=== PATIENT | male | born 1965 | race American Indian/Alaskan Native ===

== ENCOUNTER 2016-07-04 02:05 | Emergency (ER) | payer MEDICARE ==
[2016-07-04 04:27] LABS: Anion Gap 17 mmol/L; BUN/Creatinine Ratio 14.44; Blood Urea Nitrogen 13 mg/dL (9-20); Calcium 9.1 mg/dL (8.4-10.2); Carbon Dioxide 25 mmol/L (22-30); Glucose 111 mg/dL (75-100); Potassium 3.8 mmol/L (3.6-5.0); Sodium 140 mmol/L (137-145)
[2016-07-04 04:45] LABS: Basophils % (Auto) 1.2 % (0.0-1.8); Eosinophils % (Auto) 0.8 % (0.0-4.3); Hematocrit 43.9 % (35.5-45.6); Hemoglobin 14.2 gm/dl (11.8-15.2); Mean Corpuscular HGB Conc 32 % (32-34); Mean Corpuscular Hemoglobin 27 pg (28-32); Mean Corpuscular Volume 84 fl (84-94); Platelet Count 323 K/mm3 (140-440); Red Blood Count 5.22 M/mm3 (3.65-5.03); Red Cell Distribution Width 14.9 % (13.2-15.2); White Blood Count 8.9 K/mm3 (4.5-11.0)
--- NOTE | 2016-07-04 11:24 | Emergency Department Report ---
HPI - General Chief Complaint: Chest Pain Time Seen by Provider: 07/04/16 11:09 - HPI HPI: Chief complaint: Elevated blood pressure HPI: Patient is a 51-year-old male with history of hypertension and some sort of tachyarrhythmia who states his blood pressure was 160 systolic at 1:00 this morning so he came into the emergency department. Patient states he was seen at another hospital with a tachycardia arrhythmia and had atenolol added to his Norvasc and lisinopril. Patient is a very poor historian was unable to say what types of testing he had. Patient states he had 1 minute of chest pain substernal 1:00 in the morning and one on Tuesday. Patient is currently not having any chest pain, shortness of breath, nausea or vomiting. Mode of arrival: [EMS] Source: [Patient] and nursing notes Began: 1:00 in the morning Duration: Unclear patient did not have hypertension on arrival Context: See above Quality: Dull Severity: Currently 0 out of 10 Improved with: Nothing Worsened with: Nothing Associated signs and symptoms: Denies shortness of breath, diaphoresis, pedal edema ED Past Medical Hx - Past Medical History Previous Medical History?: Yes Hx Hypertension: Yes Hx Psychiatric Treatment: Yes (anxiety) - Social History Smoking Status: Unknown if ever smoked ED Review of Systems ROS: Stated complaint: HIGH BLOOD PRESSURE Other details as noted in HPI ROS Constitutional: No fever ENT: No uri symptoms Cardiovascular: See HPI Respiratory: No sob or cough GI: No nausea vomiting or diarrhea : No dysuria frequency or urgency, Skin: No rash Neuro: No focal weakness or numbness Psych: No depression Rashard/lymph: No edema Physical Exam - Physical Exam Vital Signs: Vital Signs 07/04/16 07/04/16 07/04/16 03:40 09:11 10:50 Temperature 98.0 F 98.1 F Pulse Rate 73 70 Respiratory 18 16 16 Rate Blood Pressure 135/92 Blood Pressure 144/88 [Left] O2 Sat by Pulse 99 99 99 Oximetry Physical Exam: GENERAL: The patient is well-developed well-nourished . HEENT: Normocephalic. Atraumatic. Patient has moist mucous membranes. NECK: Supple. No meningitic signs are noted. There is no adenopathy noted. CHEST/LUNGS: Clear to auscultation. There is no respiratory distress noted. HEART/CARDIOVASCULAR: Regular. There is no tachycardia. There is no gallop rub or murmur. ABDOMEN: Abdomen is soft, nontender. Patient has normal bowel sounds. There is no abdominal distention. SKIN: There is no rash. There is no edema. There is no diaphoresis. NEURO: The patient is awake, alert, and oriented. The patient is cooperative. The patient has no focal neurologic deficits. The patient has normal speech. MUSCULOSKELETAL: There is no tenderness or deformity. There is no limitation range of motion. There is no evidence of acute injury. ED Course Vital Signs 07/04/16 07/04/16 07/04/16 03:40 09:11 10:50 Temperature 98.0 F 98.1 F Pulse Rate 73 70 Respiratory 18 16 16 Rate Blood Pressure 135/92 Blood Pressure 144/88 [Left] O2 Sat by Pulse 99 99 99 Oximetry ED Medical Decision Making - Lab Data Result diagrams: 07/04/16 03:57 07/04/16 03:57 Laboratory Tests 07/04/16 07/04/16 07/04/16 03:57 07:08 09:29 Calcium 9.1 Troponin T < 0.010 < 0.010 < 0.010 - EKG Data -: EKG Interpreted by Fl EKG shows normal: sinus rhythm Rate: bradycardia (56) - EKG Data When compared to previous EKG there are: previous EKG unavailable Interpretation: nonspecific ST-T wave suresh, LVH Critical care attestation.: If time is entered above; I have spent that time in minutes in the direct care of this critically ill patient, excluding procedure time. ED Disposition Clinical Impression: Essential hypertension Disposition: DISCHARGED TO HOME OR SELFCARE Is pt being admited?: No Does the pt Need Aspirin: No Condition: Stable Instructions: Hypertension (ED) Additional Instructions: Continue current medication. Recommend taking atenolol prior to going to bed. Referrals: SYED CONTI MD [Primary Care Provider] - 2-3 Days Time of Disposition: 11:25
[2016-07-04 11:38] VITALS: BP 136/87
[2016-07-04 11:38] LABS: Bilirubin,Urine NEG (Negative); Blood,Urine NEG (Negative); Ketones,Urine 80 mg/dL (Negative); Leukocyte Esterase,Urine NEG (Negative); Mucus,Urine 3+ /HPF; Nitrite,Urine NEG (Negative); Protein,Urine <15 mg/dL mg/dL (Negative); Urobilinogen,Urine < 2.0 mg/dL (<2.0)
== END 2016-07-04 11:38 | disposition home or self-care (01) ==
LOC: ED 02:05
DX: I10 Essential (primary) hypertension (principal); F41.9 Anxiety disorder, unspecified
CPT/HCPCS: 36415; 80048; 81001; 84484; 85025; 93005; 93010; 99285

== ENCOUNTER 2017-03-09 21:39 | Emergency (ER) | payer MEDICARE ==
[2017-03-10] MEDS ORDERED: ASPIRIN PO ONE (10:41)
[2017-03-10] MEDS ORDERED: NACL 0.9% 1000 ML 1,000 ML IV ONE (10:41)
[2017-03-10] MEDS ORDERED: ATIVAN IV NR (10:45)
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
[2017-03-10 11:09] LABS: Urine Drugs of Abuse Note Disclamer
[2017-03-10 11:21] LABS: Eosinophils % (Auto) 2.9 % (0.0-4.3); Hematocrit 44.6 % (35.5-45.6); Hemoglobin 14.3 gm/dl (11.8-15.2); Mean Corpuscular HGB Conc 32 % (32-34); Mean Corpuscular Hemoglobin 27 pg (28-32); Mean Corpuscular Volume 85 fl (84-94); Platelet Count 261 K/mm3 (140-440); Red Blood Count 5.26 M/mm3 (3.65-5.03); Red Cell Distribution Width 14.3 % (13.2-15.2); White Blood Count 6.1 K/mm3 (4.5-11.0)
[2017-03-10 11:28] LABS: Creatine Kinase MB 1.9 ng/mL (0.0-4.0)
[2017-03-10 11:29] LABS: Alanine Aminotransferase 21 units/L (7-56); Albumin 4.1 g/dL (3.9-5); Albumin/Globulin Ratio 1.3 %; Alkaline Phosphatase 68 units/L (35-129); Anion Gap 16 mmol/L; BUN/Creatinine Ratio 12; Blood Urea Nitrogen 11 mg/dL (9-20); Carbon Dioxide 29 mmol/L (22-30); Chloride 100.2 mmol/L (98-107); Glucose 97 mg/dL (75-100); Potassium 4.2 mmol/L (3.6-5.0); Sodium 141 mmol/L (137-145); Total Protein 7.3 g/dL (6.3-8.2)
[2017-03-10 11:30] LABS: Creatine Kinase 131 units/L (55-170)
[2017-03-10 11:34] LABS: Bilirubin,Urine NEG (Negative); Blood,Urine NEG (Negative); Ketones,Urine NEG (Negative); Leukocyte Esterase,Urine NEG (Negative); Mucus,Urine 3+ /HPF; Nitrite,Urine NEG (Negative); Protein,Urine <15 mg/dL mg/dL (Negative); Urobilinogen,Urine < 2.0 mg/dL (<2.0)
--- NOTE | 2017-03-10 11:44 | XRay Report ---
AP CHEST : 03/09/17 21:39:00 CLINICAL: Chest pain. COMPARISON:None FINDINGS: Normal heart and pulmonary vessels. The lungs are normally expanded and clear. Dextroscoliosis. IMPRESSION: No acute cardiopulmonary process.
[2017-03-10 15:37] LABS: Anion Gap 17 mmol/L; BUN/Creatinine Ratio 10; Blood Urea Nitrogen 10 mg/dL (9-20); Calcium 8.9 mg/dL (8.4-10.2); Carbon Dioxide 29 mmol/L (22-30); Chloride 101.5 mmol/L (98-107); Glucose 104 mg/dL (75-100); Potassium 4.1 mmol/L (3.6-5.0); Sodium 143 mmol/L (137-145)
[2017-03-11] MEDS ORDERED: NORVASC PO SCH (12:00)
[2017-03-11] MEDS ORDERED: SUBLIMAZE ONE (12:37)
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
[2017-03-11 16:47] VITALS: BP 146/95
== END 2017-03-11 16:47 | disposition home or self-care (01) ==
LOC: ED 21:39
DX: F41.9 Anxiety disorder, unspecified (principal); F32.9 Major depressive disorder, single episode, unspecified; R07.9 Chest pain, unspecified; I10 Essential (primary) hypertension
CPT/HCPCS: 36415; 80048; 80053; 80307; 81001; 82550; 82553; 84436; 84443; 84481; 84484; 85025; 85379; 96360; 99285; G0480; J3010; J7030; 71010; 80320

== ENCOUNTER 2017-03-17 06:31 | Emergency (ER) | payer MEDICARE ==
[2017-03-17 06:40] VITALS: BP 111/75
--- NOTE | 2017-03-17 07:47 | Emergency Department Report ---
ED Anxiety HPI - General Chief Complaint: Medical Clearance Stated Complaint: ANXIETY Time Seen by Provider: 03/17/17 07:32 Source: patient, EMS Mode of arrival: Ambulatory Limitations: No Limitations - History of Present Illness Initial Comments: Patient here reported that he had anxiety attack this morning and called the ambulance because he said he felt like his heart was going fast. Denies any chest pain or shortness of breath. He said he feels better now and just wants to know what his blood pressure is. Denies any chest pain. Denies any suicide or homicide ideation. Pain is 0-10. Patient does see a psychiatrist said [facility] and also he sees primary care doctor at [facility]. Patient is on Zoloft for depression Atarax for anxiety Prilosec for acid reflux. Patient said he gets anxiety attack from time to time and he is not quite sure what triggered this but says he was about to get into his truck and drive and he just started feeling anxious. History of anxiety, depression, high blood pressure and acid reflux MD Complaint: anxiety, heart racing -: This morning Symptoms: palpitations Place: home Previous History of Same: Yes Severity: moderate Quality: improving Provoking factors: work/job stress Improves With: rest Worsens With: thinking about event Associated symptoms: palpitations. denies: chest pain, shortness of breath, diaphoresis, denies other symptoms, cough, fever/chills, headaches, anorexia, malaise, nausea/vomiting, rash, seizure, syncope, weakness - Related Data Home Medications: Home Medications Medication Instructions Recorded Confirmed Last Taken Ondansetron [Zofran Odt] 4 mg PO Q8HR PRN 07/04/16 03/10/17 Unknown amLODIPine [Norvasc] 10 mg PO DAILY 07/04/16 03/10/17 Unknown Sertraline 50 mg PO HS 03/10/17 03/10/17 Unknown hydrOXYzine 25 mg PO TID 03/10/17 03/10/17 Unknown Previous Rx's Medication Instructions Recorded Last Taken Type hydrOXYzine HCL [Atarax] 25 mg PO Q6HR PRN #30 tablet 03/11/17 Unknown Rx Allergies/Adverse Reactions: Allergies Allergy/AdvReac Type Severity Reaction Status Date / Time No Known Allergies Allergy Verified 03/11/17 11:38 ED Review of Systems ROS: Stated complaint: ANXIETY Other details as noted in HPI Comment: All other systems reviewed and negative Constitutional: no symptoms reported ENT: denies: ear pain, throat pain, congestion Respiratory: no symptoms reported Cardiovascular: denies: chest pain, palpitations, dyspnea on exertion, edema, syncope, paroxysmal nocturnal dyspnea Gastrointestinal: denies: abdominal pain, nausea, vomiting, diarrhea, constipation, hematemesis Musculoskeletal: denies: back pain, joint swelling, arthralgia, myalgia Skin: denies: rash Neurological: denies: headache, weakness, numbness, paresthesias, confusion, abnormal gait, vertigo Psychiatric: anxiety ( via EMS with anxiety but says that is improved.). denies : auditory hallucinations, visual hallucinations, homicidal thoughts, suicidal thoughts ED Past Medical Hx - Past Medical History Previous Medical History?: Yes Hx Hypertension: Yes Hx Psychiatric Treatment: Yes (anxiety, depression) - Surgical History Past Surgical History?: No - Family History Family history: no significant - Social History Smoking Status: Never Smoker - Medications Home Medications: Home Medications Medication Instructions Recorded Confirmed Last Taken Type Ondansetron [Zofran Odt] 4 mg PO Q8HR PRN 07/04/16 03/10/17 Unknown History amLODIPine [Norvasc] 10 mg PO DAILY 07/04/16 03/10/17 Unknown History Sertraline 50 mg PO HS 03/10/17 03/10/17 Unknown History hydrOXYzine 25 mg PO TID 03/10/17 03/10/17 Unknown History hydrOXYzine HCL [Atarax] 25 mg PO Q6HR PRN #30 tablet 03/11/17 Unknown Rx ED Physical Exam - General Limitations: No Limitations General appearance: alert, in no apparent distress - Head Head exam: Present: atraumatic, normocephalic, normal inspection - Eye Eye exam: Present: normal appearance, PERRL, EOMI. Absent: conjunctival injection, periorbital swelling, periorbital tenderness Pupils: Present: normal accommodation - ENT ENT exam: Present: normal exam, normal orophraynx, mucous membranes moist, TM's normal bilaterally, normal external ear exam - Neck Neck exam: Present: normal inspection, full ROM, other (no C-spine tenderness). Absent: tenderness, meningismus, lymphadenopathy - Respiratory Respiratory exam: Present: normal lung sounds bilaterally. Absent: respiratory distress, wheezes, rales, rhonchi, stridor, chest wall tenderness, accessory muscle use, decreased breath sounds, prolonged expiratory - Cardiovascular Cardiovascular Exam: Present: regular rate, normal rhythm, normal heart sounds. Absent: systolic murmur, diastolic murmur - GI/Abdominal GI/Abdominal exam: Present: soft, normal bowel sounds. Absent: distended, tenderness, guarding, rebound, rigid, mass, bruit, pulsatile mass, hernia - Extremities Exam Extremities exam: Present: normal inspection, full ROM, normal capillary refill , other (no clubbing, cyanosis or edema. +2 pulses in all extremities. No neurovascular compromise). Absent: tenderness, pedal edema, joint swelling, calf tenderness - Back Exam Back exam: Present: normal inspection, full ROM, other (patient ambulates without any difficulties). Absent: tenderness, CVA tenderness (R), CVA tenderness (L), muscle spasm, paraspinal tenderness, vertebral tenderness, rash noted - Neurological Exam Neurological exam: Present: alert, oriented X3, normal gait, reflexes normal, other (no focal neurological deficit). Absent: motor sensory deficit - Psychiatric Psychiatric exam: Present: normal affect, normal mood. Absent: anxious, homicidal ideation, suicidal ideation - Skin Skin exam: Present: warm, dry, intact, normal color. Absent: rash ED Course Vital Signs 03/17/17 06:36 Temperature 98 F Pulse Rate 85 Respiratory 18 Rate Blood Pressure 111/75 O2 Sat by Pulse 97 Oximetry - Reevaluation(s) Reevaluation #1: 03/17/17 08:13 Patient stable throughout ED stay ED Medical Decision Making - Medical Decision Making ED course: She reports that he had a anxiety attack this morning similar to previous anxiety. He reports that he was on his way to work and he just got anxious. Patient says that he wants his blood pressure to be checked but he is feeling much better about his anxiety. He is on hydroxyzine. Blood pressure stable on Norvasc. Patient does have a psychiatrist and a primary care doctor for patient at [facility]. I discussed the patient is vital signs stable and patient is no longer anxious and he said he is ready to go back is feeling better. Patient discharged to follow up with his psychiatrist and primary care doctor. Critical care attestation.: If time is entered above; I have spent that time in minutes in the direct care of this critically ill patient, excluding procedure time. ED Disposition Clinical Impression: Anxiety about health Disposition: DC-01 TO HOME OR SELFCARE Is pt being admited?: No Does the pt Need Aspirin: No Condition: Stable Instructions: Anxiety (ED) Additional Instructions: Please follow-up with your psychiatrist tomorrow Please call your primary care physician scheduled appointment for follow-up visit Continue taking her medication as prescribed by your doctors. Increase your fluid intake. Referrals: PRIMARY CARE,MD [Primary Care Provider] - 24 Hours Your, psychiatrist [Other] - 24 Hours Forms: Accompanied Note, Work/School Release Form(ED)
== END 2017-03-17 08:23 | disposition home or self-care (01) ==
LOC: ED 06:31
DX: F41.9 Anxiety disorder, unspecified (principal); I10 Essential (primary) hypertension
CPT/HCPCS: 99282

== ENCOUNTER 2017-07-08 01:31 | Emergency (ER) | payer MEDICARE ==
[2017-07-08] MEDS ORDERED: ASPIRIN PO ONE (03:49)
[2017-07-08 04:18] LABS: Basophils # (Auto) 0.1 K/mm3 (0.0-0.1); Basophils % (Auto) 1.3 % (0.0-1.8); Eosinophils # (Auto) 0.2 K/mm3 (0.0-0.4); Eosinophils % (Auto) 2.2 % (0.0-4.3); Hematocrit 41.9 % (35.5-45.6); Hemoglobin 13.9 gm/dl (11.8-15.2); Lymphocytes # (Auto) 1.9 K/mm3 (1.2-5.4); Lymphocytes % (Auto) 26.6 % (13.4-35.0); Mean Corpuscular HGB Conc 33 % (32-34); Mean Corpuscular Hemoglobin 27 pg (28-32); Mean Corpuscular Volume 82 fl (84-94); Monocytes # (Auto) 0.5 K/mm3 (0.0-0.8); Monocytes % (Auto) 7.7 % (0.0-7.3); Platelet Count 297 K/mm3 (140-440); Red Blood Count 5.09 M/mm3 (3.65-5.03); Red Cell Distribution Width 14.7 % (13.2-15.2)
[2017-07-08 04:51] LABS: BUN/Creatinine Ratio 13; Blood Urea Nitrogen 12 mg/dL (9-20); Calcium 8.8 mg/dL (8.4-10.2); Hemolysis Index 13
--- NOTE | 2017-07-08 06:41 | Emergency Department Report ---
ED Chest Pain HPI - General Chief Complaint: Chest Pain Stated Complaint: ANXIETY Time Seen by Provider: 07/08/17 06:09 Source: patient Mode of arrival: Ambulatory Limitations: No Limitations - History of Present Illness Initial Comments: 52-year-old Samoan male presents to the emergency department from home with complaint of some midsternal chest burning and a sore throat that started about midnight last night. Patient has not taken anything for her symptoms from presentation. He has a past medical history of hypertension and anxiety for which she takes Norvasc, sertraline and hydroxyzine. The chest discomfort as a burning sensation and is nonradiating. He denies any back pain, nausea, vomiting, fever, shortness of breath or diaphoresis. He denies any tobacco or illicit drug use or abuse. No recent travel or sick contacts at home. He goes to [facility] for primary care. - Related Data Home Medications Medication Instructions Recorded Confirmed Last Taken Ondansetron [Zofran Odt] 4 mg PO Q8HR PRN 07/04/16 03/10/17 Unknown amLODIPine [Norvasc] 10 mg PO DAILY 07/04/16 03/10/17 Unknown Sertraline 50 mg PO HS 03/10/17 03/10/17 Unknown hydrOXYzine 25 mg PO TID 03/10/17 03/10/17 Unknown Previous Rx's Medication Instructions Recorded Last Taken Type hydrOXYzine HCL [Atarax] 25 mg PO Q6HR PRN #30 tablet 03/11/17 Unknown Rx Allergies Allergy/AdvReac Type Severity Reaction Status Date / Time ibuprofen AdvReac Unknown Verified 07/08/17 07:58 Penicillins AdvReac Unknown Verified 07/08/17 07:58 Heart Score - HEART Score History: Slightly suspicious EKG: Normal Age: 45-65 Risk factors: 1-2 risk factors Troponin: < normal limit HEART Score: 2 - Critical Actions Critical Actions: 0-3 pts:0.9-1.7%risk of adverse cardiac event.Candidate for discharge ED Review of Systems ROS: Stated complaint: ANXIETY Other details as noted in HPI Comment: All other systems reviewed and negative Constitutional: denies: chills, fever Eyes: denies: eye pain, eye discharge, vision change ENT: throat pain. denies: ear pain Respiratory: denies: cough, shortness of breath, wheezing Cardiovascular: chest pain. denies: palpitations Gastrointestinal: denies: abdominal pain, nausea, diarrhea Genitourinary: denies: urgency, dysuria Musculoskeletal: denies: back pain, joint swelling, arthralgia Skin: denies: rash, lesions Neurological: denies: headache, weakness, paresthesias ED Past Medical Hx - Past Medical History Previous Medical History?: Yes Hx Hypertension: Yes Hx Psychiatric Treatment: Yes (anxiety, depression) - Surgical History Past Surgical History?: No - Social History Smoking Status: Never Smoker Substance Use Type: None - Medications Home Medications: Home Medications Medication Instructions Recorded Confirmed Last Taken Type Ondansetron [Zofran Odt] 4 mg PO Q8HR PRN 07/04/16 03/10/17 Unknown History amLODIPine [Norvasc] 10 mg PO DAILY 07/04/16 03/10/17 Unknown History Sertraline 50 mg PO HS 03/10/17 03/10/17 Unknown History hydrOXYzine 25 mg PO TID 03/10/17 03/10/17 Unknown History hydrOXYzine HCL [Atarax] 25 mg PO Q6HR PRN #30 tablet 03/11/17 Unknown Rx ED Physical Exam - General Limitations: No Limitations ED Course Vital Signs 07/08/17 07/08/17 07/08/17 03:41 07:00 07:40 Temperature 97.9 F 97.9 F Pulse Rate 63 58 L Respiratory 28 H 18 16 Rate Blood Pressure 116/76 Blood Pressure 122/78 [Left] O2 Sat by Pulse 96 96 100 Oximetry NOA score - Noa Score Age > 65: (0) No Aspirin use within the Past 7 Days: (0) No 3 or more CAD Risk Factors: (0) No 2 or more Angina events in past 24 hrs: (0) No Known CAD with more than 50% Stenosis: (0) No Elevated Cardiac Markers: (0) No ST Deviation Greater than 0.5mm: (0) No NOA Score: 0 ED Medical Decision Making - Lab Data Result diagrams: 07/08/17 04:07 07/08/17 04:07 - EKG Data -: EKG Interpreted by Me EKG shows normal: sinus rhythm, axis, intervals, QRS complexes, ST-T waves ( early repolarization) Rate: normal - EKG Data When compared to previous EKG there are: previous EKG unavailable Interpretation: normal EKG Critical care attestation.: If time is entered above; I have spent that time in minutes in the direct care of this critically ill patient, excluding procedure time. ED Disposition Clinical Impression: History of anxiety Chest pain Qualifiers: Chest pain type: unspecified Qualified Code(s): R07.9 - Chest pain, unspecified Pharyngitis Qualifiers: Pharyngitis/tonsillitis etiology: unspecified etiology Qualified Code(s): J02.9 - Acute pharyngitis, unspecified Disposition: TO HOME OR SELFCARE Is pt being admited?: No Condition: Stable Instructions: Chest Pain (ED), Pharyngitis (ED) Additional Instructions: Please follow-up with your primary care physician in the next few days without fail. Return to the emergency department with any return of your chest pain, development of shortness of breath, worsening of your symptoms, or with any acute distress. I have given him a referral for a local power house engineer, Dr. Tapia, to follow up regarding your previous chest pain for further outpatient evaluation. Referrals: CHARITY TAPIA MD [Staff Physician] - 3-5 Days PCP, Your [Other] - RUDDY Time of Disposition: 08:10
--- NOTE | 2017-07-08 06:52 | XRay Report ---
FINAL REPORT EXAM: XR CHEST ROUTINE 2V HISTORY: CP TECHNIQUE: PA and lateral chest radiographs PRIORS: None. FINDINGS: No mediastinal shift. Cardiac silhouette is not enlarged. No pneumothorax, effusion, or focal pulmonary opacity. No acute skeletal finding. IMPRESSION: No focal pulmonary opacity.
[2017-07-08] MEDS ORDERED: ASPIRIN ONE (07:36)
[2017-07-08 08:03] VITALS: BP 122/78
== END 2017-07-08 08:35 | disposition home or self-care (01) ==
LOC: ED 01:31
DX: J02.9 Acute pharyngitis, unspecified (principal); R07.89 Other chest pain; F41.9 Anxiety disorder, unspecified; I10 Essential (primary) hypertension; F32.9 Major depressive disorder, single episode, unspecified; Z88.0 Allergy status to penicillin
CPT/HCPCS: 36415; 71046; 80048; 84484; 85025; 87116; 87400; 87430; 93005; 93010

== ENCOUNTER 2017-07-15 01:46 | Emergency (ER) | payer MEDICARE ==
[2017-07-15] MEDS ORDERED: ASPIRIN PO ONE (02:50)
[2017-07-15] MEDS ORDERED: ALUM-MAG HYDROX-SIMETH 200-200-20MG/5ML PO ONE (03:18)
[2017-07-15] MEDS ORDERED: PEPCID PO ONE (03:18)
[2017-07-15] MEDS ORDERED: ULTRAM PO ONE (03:18)
[2017-07-15 03:51] LABS: Basophils % (Auto) 0.2 % (0.0-1.8); Hematocrit 42.8 % (35.5-45.6); Hemoglobin 14.2 gm/dl (11.8-15.2); Lymphocytes % (Auto) 15.9 % (13.4-35.0); Mean Corpuscular HGB Conc 33 % (32-34); Mean Corpuscular Hemoglobin 27 pg (28-32); Mean Corpuscular Volume 82 fl (84-94); Monocytes # (Auto) 0.1 K/mm3 (0.0-0.8); Monocytes % (Auto) 1.1 % (0.0-7.3); Platelet Count 303 K/mm3 (140-440); Red Blood Count 5.23 M/mm3 (3.65-5.03); Red Cell Distribution Width 14.5 % (13.2-15.2)
[2017-07-15 04:31] LABS: BUN/Creatinine Ratio 18; Blood Urea Nitrogen 14 mg/dL (9-20); Calcium 9.2 mg/dL (8.4-10.2); Hemolysis Index 6
--- NOTE | 2017-07-15 05:20 | Emergency Department Report ---
ED Chest Pain HPI - General Chief Complaint: Chest Pain Stated Complaint: CHEST PAIN Time Seen by Provider: 07/15/17 03:05 Source: patient Mode of arrival: Ambulatory Limitations: No Limitations - History of Present Illness Initial Comments: Patient is a 52-year-old -Samoan male who is presenting with some lower chest pain/epigastric pain that started yesterday. [place] When this started. He had just eaten. Patient denies any shortness of breath cough pleuritic chest pain nausea vomiting at this time. Patient states this is consistent with his GERD. Patient states he does not take any medications for acid reflux. Onset: after eating Severity scale (0 -10): 8 Improves With: nothing Worsens With: nothing - Related Data Home Medications Medication Instructions Recorded Confirmed Last Taken Ondansetron [Zofran Odt] 4 mg PO Q8HR PRN 07/04/16 03/10/17 Unknown amLODIPine [Norvasc] 10 mg PO DAILY 07/04/16 03/10/17 Unknown Sertraline 50 mg PO HS 03/10/17 03/10/17 Unknown hydrOXYzine 25 mg PO TID 03/10/17 03/10/17 Unknown Previous Rx's Medication Instructions Recorded Last Taken Type hydrOXYzine HCL [Atarax] 25 mg PO Q6HR PRN #30 tablet 03/11/17 Unknown Rx Omeprazole 20 mg PO DAILY #30 tablet. 07/15/17 Unknown Rx Allergies Allergy/AdvReac Type Severity Reaction Status Date / Time ibuprofen AdvReac Unknown Verified 07/08/17 08:28 Penicillins AdvReac Unknown Verified 07/08/17 07:58 Heart Score - HEART Score History: Slightly suspicious EKG: Normal Age: < 45 Risk factors: No known risk factors Troponin: < normal limit HEART Score: 0 ED Review of Systems ROS: Stated complaint: CHEST PAIN Other details as noted in HPI Comment: All other systems reviewed and negative ED Past Medical Hx - Past Medical History Hx Hypertension: Yes Hx Psychiatric Treatment: Yes (anxiety, depression) - Surgical History Past Surgical History?: No - Social History Smoking Status: Never Smoker Substance Use Type: None - Medications Home Medications: Home Medications Medication Instructions Recorded Confirmed Last Taken Type Ondansetron [Zofran Odt] 4 mg PO Q8HR PRN 07/04/16 03/10/17 Unknown History amLODIPine [Norvasc] 10 mg PO DAILY 07/04/16 03/10/17 Unknown History Sertraline 50 mg PO HS 03/10/17 03/10/17 Unknown History hydrOXYzine 25 mg PO TID 03/10/17 03/10/17 Unknown History hydrOXYzine HCL [Atarax] 25 mg PO Q6HR PRN #30 tablet 03/11/17 Unknown Rx Omeprazole 20 mg PO DAILY #30 tablet. 07/15/17 Unknown Rx ED Physical Exam - General Limitations: No Limitations General appearance: alert, in no apparent distress - Head Head exam: Present: atraumatic, normocephalic - Eye Eye exam: Present: normal appearance - ENT ENT exam: Present: mucous membranes moist - Neck Neck exam: Present: normal inspection - Respiratory Respiratory exam: Present: normal lung sounds bilaterally. Absent: respiratory distress - Cardiovascular Cardiovascular Exam: Present: regular rate, normal rhythm. Absent: systolic murmur, diastolic murmur, rubs, gallop - GI/Abdominal GI/Abdominal exam: Present: soft, normal bowel sounds - Rectal Rectal exam: Present: deferred - Extremities Exam Extremities exam: Present: normal inspection - Back Exam Back exam: Present: normal inspection - Neurological Exam Neurological exam: Present: alert, oriented X3 - Psychiatric Psychiatric exam: Present: normal affect, normal mood - Skin Skin exam: Present: warm, dry, intact, normal color. Absent: rash ED Course Vital Signs 07/15/17 07/15/17 02:47 04:43 Temperature 97.9 F Pulse Rate 79 Respiratory 18 20 Rate Blood Pressure 143/92 O2 Sat by Pulse 99 Oximetry NOA score - Noa Score Age > 65: (0) No Aspirin use within the Past 7 Days: (0) No 3 or more CAD Risk Factors: (0) No 2 or more Angina events in past 24 hrs: (0) No Known CAD with more than 50% Stenosis: (0) No Elevated Cardiac Markers: (0) No ST Deviation Greater than 0.5mm: (0) No NOA Score: 0 ED Medical Decision Making - Lab Data Result diagrams: 07/15/17 03:29 07/15/17 03:29 - EKG Data -: EKG Interpreted by Oh EKG shows normal: sinus rhythm, axis, intervals, QRS complexes, ST-T waves Rate: normal - EKG Data Interpretation: normal EKG - Radiology Data Radiology results: image reviewed no acute process - Medical Decision Making Patient is very calm and comfortable here in emergency department. Patient's troponin is negative x-ray and EKG are within normal limits. Patient discharged home with treatment for GERD Critical care attestation.: If time is entered above; I have spent that time in minutes in the direct care of this critically ill patient, excluding procedure time. ED Disposition Clinical Impression: Atypical chest pain Disposition: DC-01 TO HOME OR SELFCARE Is pt being admited?: No Does the pt Need Aspirin: No Condition: Stable Instructions: Chest Pain (ED) Prescriptions: Omeprazole 20 mg PO DAILY #30 tablet. Referrals: PRIMARY CARE, [Primary Care Provider] - 3-5 Days
[2017-07-15 05:48] VITALS: BP 125/85
--- NOTE | 2017-07-15 06:48 | XRay Report ---
FINAL REPORT EXAM: XR CHEST 1V AP HISTORY: chest pain TECHNIQUE: A portable semi-upright view the chest was obtained and compared to the study of 07/08/2017. FINDINGS: The heart is mildly enlarged. There is no evidence of congestion or infiltrates. Pleural fluid is not seen. The bones and soft tissues do not show any acute changes. IMPRESSION: No active chest disease.
== END 2017-07-15 05:48 | disposition home or self-care (01) ==
LOC: ED 01:46
DX: R07.89 Other chest pain (principal); I10 Essential (primary) hypertension; F41.9 Anxiety disorder, unspecified; F32.9 Major depressive disorder, single episode, unspecified; Z88.0 Allergy status to penicillin; Z88.8 Allergy status to other drugs, medicaments and biological substances
CPT/HCPCS: 36415; 71045; 80048; 84484; 85025; 93005; 93010; 99284

== ENCOUNTER 2017-11-13 01:52 | Emergency (ER) | payer MEDICARE ==
[2017-11-13] MEDS ORDERED: ASPIRIN PO ONE (02:16)
[2017-11-13 02:44] LABS: Basophils # (Auto) 0.1 K/mm3 (0.0-0.1); Basophils % (Auto) 1.3 % (0.0-1.8); Eosinophils # (Auto) 0.2 K/mm3 (0.0-0.4); Eosinophils % (Auto) 2.4 % (0.0-4.3); Hematocrit 43.1 % (35.5-45.6); Hemoglobin 14.1 gm/dl (11.8-15.2); Lymphocytes # (Auto) 1.7 K/mm3 (1.2-5.4); Lymphocytes % (Auto) 27.7 % (13.4-35.0); Mean Corpuscular HGB Conc 33 % (32-34); Mean Corpuscular Hemoglobin 27 pg (28-32); Mean Corpuscular Volume 83 fl (84-94); Monocytes # (Auto) 0.6 K/mm3 (0.0-0.8); Monocytes % (Auto) 9.8 % (0.0-7.3); Platelet Count 282 K/mm3 (140-440); Red Blood Count 5.19 M/mm3 (3.65-5.03); Red Cell Distribution Width 14.7 % (13.2-15.2)
[2017-11-13 03:10] LABS: BUN/Creatinine Ratio 18; Blood Urea Nitrogen 16 mg/dL (9-20); Calcium 9.7 mg/dL (8.4-10.2); Hemolysis Index 9
--- NOTE | 2017-11-13 06:42 | Emergency Department Report ---
HPI - General Chief Complaint: Chest Pain Time Seen by Provider: 11/13/17 06:30 - HPI HPI: Room 4 The patient is a 52-year-old male presenting with chief complaint of palpitations. The patient states that midnight he was at rest when he developed palpitations. The patient states at that time he had discomfort in the left upper quadrant/left costal margin that was described as sharp in nature during the palpitations. Patient states she feels slightly short of breath but denies nausea/vomiting or diaphoresis. Patient currently denies chest pain and states he just feels hungry. Patient denies cough or fever. Patient states his last stress test occurred approximately one week ago at [facility]. Location: [See above] Duration: [See above] Quality: Palpitations Severity: Currently 0/10 Modifying factors: [see above] Context: [see above] Mode of transportation: [not driving] ED Past Medical Hx - Past Medical History Hx Hypertension: Yes Hx Psychiatric Treatment: Yes (anxiety, depression) - Surgical History Past Surgical History?: No - Family History Family history: no significant - Social History Smoking Status: Never Smoker Substance Use Type: None (denies illicit drug use) - Medications Home Medications: Home Medications Medication Instructions Recorded Confirmed Last Taken Type Ondansetron [Zofran Odt] 4 mg PO Q8HR PRN 07/04/16 03/10/17 Unknown History amLODIPine [Norvasc] 10 mg PO DAILY 07/04/16 03/10/17 Unknown History Sertraline 50 mg PO HS 03/10/17 03/10/17 Unknown History hydrOXYzine 25 mg PO TID 03/10/17 03/10/17 Unknown History hydrOXYzine HCL [Atarax] 25 mg PO Q6HR PRN #30 tablet 03/11/17 Unknown Rx Omeprazole 20 mg PO DAILY #30 tablet. 07/15/17 Unknown Rx ED Review of Systems ROS: Stated complaint: CP/PANIC ATTACK Other details as noted in HPI Constitutional: denies: diaphoresis, fever Eyes: denies: eye pain ENT: denies: throat pain Respiratory: shortness of breath Cardiovascular: chest pain, palpitations Endocrine: denies: unexplained weight gain Gastrointestinal: denies: nausea, vomiting Genitourinary: denies: dysuria Musculoskeletal: denies: back pain Skin: denies: change in color Neurological: denies: headache Psychiatric: anxiety Physical Exam - Physical Exam Vital Signs: Vital Signs 11/13/17 11/13/17 11/13/17 02:10 06:07 06:08 Temperature 97.6 F Pulse Rate 51 L 60 45 L Respiratory 16 15 20 Rate Blood Pressure 132/95 117/75 O2 Sat by Pulse 99 100 Oximetry 11/13/17 11/13/17 11/13/17 06:09 06:11 06:19 Temperature Pulse Rate 46 L 44 L Respiratory 17 20 16 Rate Blood Pressure 117/75 117/75 O2 Sat by Pulse 100 100 99 Oximetry Physical Exam: GENERAL: The patient is well-developed well-nourished male lying on stretcher not appearing to be in acute distress. [] HEENT: Normocephalic. Atraumatic. Extraocular motions are intact. Patient has moist mucous membranes. NECK: Supple. No meningitic signs are noted. There is no adenopathy noted. CHEST/LUNGS: Clear to auscultation. There is no respiratory distress noted. HEART/CARDIOVASCULAR: Regular. There is no tachycardia. There is no gallop rub or murmur. ABDOMEN: Abdomen is soft, nontender. Patient has normal bowel sounds. There is no abdominal distention. SKIN: There is no rash. There is no edema. There is no diaphoresis. NEURO: The patient is awake, alert, and oriented. The patient is cooperative. The patient has normal speech MUSCULOSKELETAL: There is no evidence of acute injury. ED Course Vital Signs 11/13/17 11/13/17 11/13/17 02:10 06:07 06:08 Temperature 97.6 F Pulse Rate 51 L 60 45 L Respiratory 16 15 20 Rate Blood Pressure 132/95 117/75 O2 Sat by Pulse 99 100 Oximetry 11/13/17 11/13/17 11/13/17 06:09 06:11 06:19 Temperature Pulse Rate 46 L 44 L Respiratory 17 20 16 Rate Blood Pressure 117/75 117/75 O2 Sat by Pulse 100 100 99 Oximetry - Reevaluation(s) Reevaluation #1: 11/13/17 08:45 Patient remains asymptomatic. 2 sets of negative cardiac enzymes and negative d -dimer ED Medical Decision Making - Lab Data Result diagrams: 11/13/17 02:24 11/13/17 02:24 Laboratory Tests 11/13/17 11/13/1711/13/18 02:24 02:24 02:24 WBC 6.3 RBC 5.19 H Hgb 14.1 Hct 43.1 MCV 83 L MCH 27 L MCHC 33 RDW 14.7 Plt Count 282 Lymph % (Auto) 27.7 [place] % (Auto) 9.8 H Eos % (Auto) 2.4 Baso % (Auto) 1.3 Lymph # 1.7 [place] # 0.6 Eos # 0.2 Baso # 0.1 Seg Neutrophils % 58.8 Seg Neutrophils # 3.7 D-Dimer Sodium 139 Potassium 4.1 Chloride 98.8 Carbon Dioxide 29 Anion Gap 15 BUN 16 Creatinine 0.9 Estimated GFR > 60 BUN/Creatinine Ratio 18 Glucose 102 H Calcium 9.7 Magnesium Troponin T < 0.010 TSH 1.210 Free T4 1.55 H 11/13/17 11/13/17 11/13/17 02:24 06:05 07:27 WBC RBC Hgb Hct MCV MCH MCHC RDW Plt Count Lymph % (Auto) [place] % (Auto) Eos % (Auto) Baso % (Auto) Lymph # [place] # Eos # Baso # Seg Neutrophils % Seg Neutrophils # D-Dimer < 135.0 Sodium Potassium Chloride Carbon Dioxide Anion Gap BUN Creatinine Estimated GFR BUN/Creatinine Ratio Glucose Calcium Magnesium 2.20 Troponin T < 0.010 TSH Free T4 Critical care attestation.: If time is entered above; I have spent that time in minutes in the direct care of this critically ill patient, excluding procedure time. ED Disposition Clinical Impression: Palpitations, Chest pain Disposition: TO HOME OR SELFCARE Is pt being admited?: No Does the pt Need Aspirin: No Condition: Stable Instructions: Chest Pain (ED) Additional Instructions: Return to the emergency department immediately should you develop worsening symptoms, fever, inability to tolerate food or liquid or any other concerns. Referrals: PRIMARY CARE, [Primary Care Provider] - 3-5 Days CHERI PRINCE MD [Staff Physician] - 3-5 Days (Dr. Prince is a victims advocate clerk/specialist. Please follow up with him for further evaluation) Time of Disposition: 08:46
[2017-11-13 07:28] LABS: Free T4 (Free Thyroxine) 1.55 ng/dL (0.76-1.46)
[2017-11-13 08:54] VITALS: BP 120/70
--- NOTE | 2017-11-13 09:34 | XRay Report ---
FINAL REPORT EXAM: XR CHEST ROUTINE 2V HISTORY: palpitations TECHNIQUE: Chest, two views PRIORS: 07/15/2017 FINDINGS: The heart size is normal. There is pulmonary hyperinflation which is suggestive of COPD. Pulmonary vasculature is not congested. The lungs are clear. There are no pleural effusion seen. There is no evidence of pneumothorax. IMPRESSION: COPD. There is no acute abnormality identified.
== END 2017-11-13 08:53 | disposition home or self-care (01) ==
LOC: ED 01:52
DX: R07.9 Chest pain, unspecified (principal); R00.2 Palpitations; I10 Essential (primary) hypertension; F41.9 Anxiety disorder, unspecified; F32.9 Major depressive disorder, single episode, unspecified; Z88.6 Allergy status to analgesic agent; Z88.0 Allergy status to penicillin
CPT/HCPCS: 36415; 71046; 80048; 83735; 84439; 84443; 84484; 85025; 85379; 93005; 93010

== ENCOUNTER 2020-01-21 09:41 | Emergency (ER) | payer MEDICARE, MEDICAID ==
[2020-01-21] MEDS ORDERED: ASPIRIN 325 MG TAB PO ONE (10:11)
--- NOTE | 2020-01-21 10:27 | XRay Report ---
XR chest 1V ap INDICATION / CLINICAL INFORMATION: Chest Pain COMPARISON: 10/14/2018 FINDINGS: SUPPORT DEVICES: None. HEART / MEDIASTINUM: No significant abnormality. LUNGS / PLEURA: Lungs are clear. Costophrenic sulci are sharp. No pneumothorax. ADDITIONAL FINDINGS: No significant additional findings. IMPRESSION: 1. No acute findings. Signer Name: Hugo Dias MD Signed: 01/21/2020 10:23 AM Workstation Name: [id number]
[2020-01-21 10:44] LABS: Basophils # (Auto) 0.1 K/mm3 (0.0-0.1); Basophils % (Auto) 1.3 % (0.0-1.8); Eosinophils # (Auto) 0.1 K/mm3 (0.0-0.4); Eosinophils % (Auto) 2.4 % (0.0-4.3); Hematocrit 41.4 % (35.5-45.6); Hemoglobin 13.8 gm/dl (11.8-15.2); Lymphocytes # (Auto) 1.3 K/mm3 (1.2-5.4); Lymphocytes % (Auto) 25.6 % (13.4-35.0); Mean Corpuscular HGB Conc 33 % (32-34); Mean Corpuscular Volume 85 fl (84-94); Monocytes # (Auto) 0.4 K/mm3 (0.0-0.8); Monocytes % (Auto) 8.9 % (0.0-7.3); Platelet Count 277 K/mm3 (140-440); Red Cell Distribution Width 14.5 % (13.2-15.2)
[2020-01-21 11:02] LABS: BUN/Creatinine Ratio 18; Blood Urea Nitrogen 16 mg/dL (9-20); Calcium 9.4 mg/dL (8.4-10.2); Hemolysis Index 8
--- NOTE | 2020-01-21 12:55 | Emergency Department Report ---
ED Chest Pain HPI - General Chief Complaint: Chest Pain Stated Complaint: ANXIETY ATTACK Time Seen by Provider: 01/21/20 12:47 Source: patient Mode of arrival: Ambulatory Limitations: No Limitations - History of Present Illness Initial Comments: Patient is 54 years old male with history of hypertension. Patient presented to the ER stating that he was drinking juice this morning and all of a sudden he started felt chest pain and heart racing. Patient stated that he has history of anxiety and this is looked like it his previous panic attack. Patient stated the symptoms completely resolved now. Patient denied any shortness of breath. Patient also denied any fever or chills. MD Complaint: chest pain -: This morning Onset: during rest Pain Location: left chest Pain Radiation: none Severity: mild Quality: pressure - Related Data Home Medications Medication Instructions Recorded Confirmed Last Taken Ondansetron [Zofran Odt] 4 mg PO Q8HR PRN 07/04/16 03/10/17 Unknown amLODIPine [Norvasc] 10 mg PO DAILY 07/04/16 03/10/17 Unknown Sertraline 50 mg PO HS 03/10/17 03/10/17 Unknown hydrOXYzine 25 mg PO TID 03/10/17 03/10/17 Unknown Previous Rx's Medication Instructions Recorded Last Taken Type hydrOXYzine HCL [Atarax] 25 mg PO Q6HR PRN #30 tablet 03/11/17 Unknown Rx Omeprazole 20 mg PO DAILY #30 tablet. 07/15/17 Unknown Rx Allergies Allergy/AdvReac Type Severity Reaction Status Date / Time ibuprofen AdvReac Unknown Verified 03/14/18 09:44 Penicillins AdvReac Unknown Verified 03/14/18 09:44 Heart Score - HEART Score History: Slightly suspicious EKG: Normal Age: 45-65 Risk factors: 1-2 risk factors Troponin: < normal limit HEART Score: 2 - Critical Actions Critical Actions: 0-3 pts:0.9-1.7%risk of adverse cardiac event.Candidate for discharge ED Review of Systems ROS: Stated complaint: ANXIETY ATTACK Other details as noted in HPI Comment: All other systems reviewed and negative Constitutional: denies: chills, fever Respiratory: denies: cough, shortness of breath Cardiovascular: chest pain, palpitations Gastrointestinal: denies: abdominal pain, nausea, vomiting, diarrhea Musculoskeletal: denies: back pain Psychiatric: anxiety. denies: depression, auditory hallucinations, visual rox lucinations, homicidal thoughts, suicidal thoughts ED Past Medical Hx - Past Medical History Previous Medical History?: Yes Hx Hypertension: Yes Hx Psychiatric Treatment: Yes (anxiety, depression) - Social History Smoking Status: Never Smoker Substance Use Type: None - Medications Home Medications: Home Medications Medication Instructions Recorded Confirmed Last Taken Type Ondansetron [Zofran Odt] 4 mg PO Q8HR PRN 07/04/16 03/10/17 Unknown History amLODIPine [Norvasc] 10 mg PO DAILY 07/04/16 03/10/17 Unknown History Sertraline 50 mg PO HS 03/10/17 03/10/17 Unknown History hydrOXYzine 25 mg PO TID 03/10/17 03/10/17 Unknown History hydrOXYzine HCL [Atarax] 25 mg PO Q6HR PRN #30 tablet 03/11/17 Unknown Rx Omeprazole 20 mg PO DAILY #30 tablet. 07/15/17 Unknown Rx ED Physical Exam - General Limitations: No Limitations General appearance: alert, in no apparent distress - Head Head exam: Present: atraumatic, normocephalic, normal inspection - Eye Eye exam: Present: normal appearance, PERRL - ENT ENT exam: Present: normal exam, normal orophraynx, mucous membranes moist - Neck Neck exam: Present: normal inspection, full ROM. Absent: tenderness, meningismus, lymphadenopathy, thyromegaly - Respiratory Respiratory exam: Present: normal lung sounds bilaterally - Cardiovascular Cardiovascular Exam: Present: regular rate, normal rhythm, normal heart sounds - GI/Abdominal GI/Abdominal exam: Present: soft, normal bowel sounds. Absent: distended, tenderness, guarding, rebound, rigid, diminished bowel sounds, organomegaly, mass, bruit, pulsatile mass, hernia - Extremities Exam Extremities exam: Present: normal inspection, full ROM - Neurological Exam Neurological exam: Present: alert, oriented X3, CN II-XII intact, normal gait, reflexes normal. Absent: motor sensory deficit - Psychiatric Psychiatric exam: Present: normal mood, anxious - Skin Skin exam: Present: warm, intact, normal color ED Course Vital Signs 01/21/20 01/21/20 10:03 12:44 Temperature 97.8 F Pulse Rate 68 Respiratory 18 18 Rate Blood Pressure 135/93 O2 Sat by Pulse 99 99 Oximetry NOA score - Noa Score Age > 65: (0) No Aspirin use within the Past 7 Days: (0) No 3 or more CAD Risk Factors: (0) No 2 or more Angina events in past 24 hrs: (0) No Known CAD with more than 50% Stenosis: (0) No Elevated Cardiac Markers: (0) No ST Deviation Greater than 0.5mm: (0) No NOA Score: 0 ED Medical Decision Making - Lab Data Result diagrams: 01/21/20 10:24 01/21/20 10:24 - EKG Data -: EKG Interpreted by Me EKG shows normal: sinus rhythm Rate: normal - EKG Data Interpretation: no acute changes - Radiology Data Radiology results: report reviewed - Medical Decision Making Patient is 54 years old male with history of hypertension. Patient presented to the ER stating that he was drinking juice this morning and all of a sudden he started felt chest pain and heart racing. Patient stated that he has history of anxiety and this is looked like it his previous panic attack. Patient stated the symptoms completely resolved now. Patient denied any shortness of breath. Patient also denied any fever or chills. Patient remained asymptomatic in the emergency room. Labs reviewed and is unremarkable including troponin x2. Chest x-ray is unremarkable. Patient advised to follow-up with his primary doctor in the next 2 to 3 days and to return to the ER if he develop any new symptoms. Critical care attestation.: If time is entered above; I have spent that time in minutes in the direct care of this critically ill patient, excluding procedure time. ED Disposition Clinical Impression: Chest pain Disposition: DC-01 TO HOME OR SELFCARE Is pt being admited?: No Condition: Stable Instructions: Chest Pain (ED) Referrals: PRIMARY CARE, [Primary Care Provider] - 3-5 Days
[2020-01-21 16:56] VITALS: BP 129/89
== END 2020-01-21 15:22 | disposition home or self-care (01) ==
LOC: ED 09:41
DX: R07.89 Other chest pain (principal); I10 Essential (primary) hypertension; F41.9 Anxiety disorder, unspecified; F32.89 Other specified depressive episodes; Z79.899 Other long term (current) drug therapy; Z88.6 Allergy status to analgesic agent; Z88.0 Allergy status to penicillin
CPT/HCPCS: 36415; 71045; 80048; 84484; 85025; 93005

== ENCOUNTER 2020-01-26 00:23 | Emergency (ER) | payer MEDICARE ==
[2020-01-26] MEDS ORDERED: ASPIRIN 325 MG TAB PO ONE (01:39)
--- NOTE | 2020-01-26 02:06 | XRay Report ---
CHEST 1 VIEW INDICATION: Chest Pain. COMPARISON: 01/21/2020 FINDINGS: Support devices: None. Heart: Normal. Lungs/Pleura: No acute pulmonary or pleural findings. IMPRESSION: 1. No acute findings. Signer Name: Dax Noriega MD Signed: 01/26/2020 2:01 AM Workstation Name: [id number]
[2020-01-26 02:25] LABS: Basophils # (Auto) 0.1 K/mm3 (0.0-0.1); Basophils % (Auto) 1.3 % (0.0-1.8); Eosinophils # (Auto) 0.1 K/mm3 (0.0-0.4); Eosinophils % (Auto) 1.8 % (0.0-4.3); Hematocrit 39.7 % (35.5-45.6); Hemoglobin 13.2 gm/dl (11.8-15.2); Lymphocytes # (Auto) 1.8 K/mm3 (1.2-5.4); Lymphocytes % (Auto) 28.6 % (13.4-35.0); Mean Corpuscular HGB Conc 33 % (32-34); Mean Corpuscular Volume 85 fl (84-94); Monocytes # (Auto) 0.6 K/mm3 (0.0-0.8); Monocytes % (Auto) 9.4 % (0.0-7.3); Platelet Count 259 K/mm3 (140-440); Red Blood Count 4.67 M/mm3 (3.65-5.03); Red Cell Distribution Width 14.6 % (13.2-15.2)
[2020-01-26 02:39] LABS: BUN/Creatinine Ratio 21; Blood Urea Nitrogen 17 mg/dL (9-20); Calcium 9.5 mg/dL (8.4-10.2); Hemolysis Index 11
--- NOTE | 2020-01-26 09:36 | Emergency Department Report ---
ED General Adult HPI - General Chief complaint: Chest Pain Stated complaint: ANXIETY ATTACK PUI?: No Time Seen by Provider: 01/26/20 08:20 Source: patient, RN notes reviewed, old records reviewed Mode of arrival: Stretcher Limitations: No Limitations - History of Present Illness Initial comments: The patient was evaluated in the emergency department for symptoms described in the history of present illness. He/she was evaluated in the context of the global COVID-19 pandemic, which necessitated consideration that the patient might be at risk for infection with the virus that causes COVID-19. Institutional protocols and algorithms that pertain to the evaluation of patients at risk for COVID-19 are in a state of rapid change based on information released by regulatory bodies including the CDC and federal and state organizations. These policies and algorithms were followed during the patient's care in the emergency department. Please note that these policies, procedures and recommendations changed on a rapid basis. Mr. Kessler is a pleasant 54-year-old gentleman. He has a history of reported anxiety attacks and panic attacks. He reports having had a negative cardiac stress test within the past few years, reports having had a negative Holter monitor also within the past few years. 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 The patient presents today with a complaint of "I had a panic attack." Since 2017, patient has been experiencing intermittent nonexertional central and nonradiating chest tightness, with associated heart racing. He was seen in this hospital 5 days ago for similar symptoms and had an unremarkable work-up. Today, he presents with resolved central chest tightness, and heart racing, which started yesterday evening. Symptoms did not radiate to the back, arms or neck. There is no vomiting, diaphoresis or exertional shortness of breath. There is no leg pain, leg swelling, surgery, or recent hospitalizations, the patient denies DVT and pulmonary embolism risk factors. His chest tightness, and palpitations have resolved, he denies all other complaints at this time, and he is asking to eat and drink. -: Sudden Location: chest Radiation: non-radiation Severity scale (0 -10): 7 Consistency: now resolved Improves with: none Worsens with: none - Related Data Home Medications Medication Instructions Recorded Confirmed Last Taken Ondansetron [Zofran Odt] 4 mg PO Q8HR PRN 07/04/16 03/10/17 Unknown amLODIPine [Norvasc] 10 mg PO DAILY 07/04/16 03/10/17 Unknown Sertraline 50 mg PO HS 03/10/17 03/10/17 Unknown hydrOXYzine 25 mg PO TID 03/10/17 03/10/17 Unknown Previous Rx's Medication Instructions Recorded Last Taken Type hydrOXYzine HCL [Atarax] 25 mg PO Q6HR PRN #30 tablet 03/11/17 Unknown Rx Omeprazole 20 mg PO DAILY #30 tablet. 07/15/17 Unknown Rx Allergies Allergy/AdvReac Type Severity Reaction Status Date / Time ibuprofen AdvReac Unknown Verified 03/14/18 09:44 Penicillins AdvReac Unknown Verified 03/14/18 09:44 ED Review of Systems ROS: Stated complaint: ANXIETY ATTACK Other details as noted in HPI Constitutional: denies: fever Eyes: denies: eye discharge ENT: denies: epistaxis Respiratory: denies: cough, shortness of breath, SOB with exertion, SOB at rest Cardiovascular: chest pain, palpitations. denies: dyspnea on exertion, orthopnea, edema, syncope Gastrointestinal: denies: abdominal pain, nausea, vomiting, hematemesis, melena, hematochezia Genitourinary: denies: dysuria Musculoskeletal: denies: back pain, arthralgia, myalgia Neurological: denies: weakness Psychiatric: anxiety. denies: homicidal thoughts, suicidal thoughts ED Past Medical Hx - Past Medical History Previous Medical History?: Yes Hx Hypertension: Yes Hx Psychiatric Treatment: Yes (anxiety, depression) - Surgical History Past Surgical History?: No - Social History Smoking Status: Never Smoker Substance Use Type: None - Medications Home Medications: Home Medications Medication Instructions Recorded Confirmed Last Taken Type Ondansetron [Zofran Odt] 4 mg PO Q8HR PRN 07/04/16 03/10/17 Unknown History amLODIPine [Norvasc] 10 mg PO DAILY 07/04/16 03/10/17 Unknown History Sertraline 50 mg PO HS 03/10/17 03/10/17 Unknown History hydrOXYzine 25 mg PO TID 03/10/17 03/10/17 Unknown History hydrOXYzine HCL [Atarax] 25 mg PO Q6HR PRN #30 tablet 03/11/17 Unknown Rx Omeprazole 20 mg PO DAILY #30 tablet. 07/15/17 Unknown Rx ED Physical Exam - General Limitations: No Limitations General appearance: alert, in no apparent distress - Head Head exam: Present: atraumatic, normocephalic - Eye Eye exam: Present: normal appearance, EOMI. Absent: nystagmus - ENT ENT exam: Present: normal exam, normal orophraynx, mucous membranes moist, normal external ear exam - Neck Neck exam: Present: normal inspection, full ROM. Absent: tenderness, meningismus - Respiratory Respiratory exam: Present: normal lung sounds bilaterally. Absent: respiratory distress, wheezes, rales, rhonchi, stridor, decreased breath sounds - Cardiovascular Cardiovascular Exam: Present: regular rate, normal rhythm, normal heart sounds. Absent: bradycardia, tachycardia, irregular rhythm, systolic murmur, diastolic murmur, rubs, gallop - GI/Abdominal GI/Abdominal exam: Present: soft. Absent: distended, tenderness, guarding, rebound, rigid, pulsatile mass - Rectal Rectal exam: Present: deferred - Extremities Exam Extremities exam: Present: normal inspection, full ROM, other (2+ pulses noted in the bilateral upper and lower extremities. There is no palpable cord. negative Homans sign. Muscular compartments are soft. The pelvis is stable.). Absent: pedal edema, calf tenderness - Back Exam Back exam: Present: normal inspection, full ROM. Absent: tenderness, CVA t enderness (R), CVA tenderness (L), paraspinal tenderness, vertebral tenderness - Neurological Exam Neurological exam: Present: alert, oriented X3, normal gait, other (No facial droop. Tongue midline. Extraocular movements intact bilaterally. Facial sensation intact to light touch in V1, V2, V3 distribution bilaterally. 5 and a 5 strength in 4 extremities. Sensation intact to light touch in 4 extremities.). Absent: motor sensory deficit - Psychiatric Psychiatric exam: Present: normal affect, normal mood. Absent: homicidal ideation, suicidal ideation - Skin Skin exam: Present: warm, dry, intact, normal color. Absent: rash ED Course Vital Signs 01/26/20 01/26/20 01:22 08:33 Temperature 99.0 F Pulse Rate 60 69 Respiratory 20 17 Rate Blood Pressure 125/84 140/84 [Left] O2 Sat by Pulse 99 100 Oximetry ED Medical Decision Making - Lab Data Result diagrams: 01/26/20 01:56 01/26/20 01:56 Vital Signs 01/26/20 01/26/20 01:22 08:33 Temperature 99.0 F Pulse Rate 60 69 Respiratory 20 17 Rate Blood Pressure 125/84 140/84 [Left] O2 Sat by Pulse 99 100 Oximetry Lab Results 01/26/20 01/26/20 01/26/20 Range/Units 01:56 01:56 04:47 WBC 6.3 (4.5-11.0) K/mm3 RBC 4.67 (3.65-5.03) M/mm3 Hgb 13.2 (11.8-15.2) gm/dl Hct 39.7 (35.5-45.6) % MCV 85 (84-94) fl MCH 28 (28-32) pg MCHC 33 (32-34) % RDW 14.6 (13.2-15.2) % Plt Count 259 (140-440) K/mm3 Lymph % (Auto) 28.6 (13.4-35.0) % [place] % (Auto) 9.4 H (0.0-7.3) % Eos % (Auto) 1.8 (0.0-4.3) % Baso % (Auto) 1.3 (0.0-1.8) % Lymph # (Auto) 1.8 (1.2-5.4) K/mm3 [place] # (Auto) 0.6 (0.0-0.8) K/mm3 Eos # (Auto) 0.1 (0.0-0.4) K/mm3 Baso # (Auto) 0.1 (0.0-0.1) K/mm3 Seg Neutrophils % 58.9 (40.0-70.0) % Seg Neutrophils # 3.7 (1.8-7.7) K/mm3 Sodium 142 (137-145) mmol/L Potassium 4.0 (3.6-5.0) mmol/L Chloride 102.1 (98-107) mmol/L Carbon Dioxide 26 (22-30) mmol/L Anion Gap 18 mmol/L BUN 17 (9-20) mg/dL Creatinine 0.8 (0.8-1.3) mg/dL Estimated GFR > 60 ml/min BUN/Creatinine Ratio 21 % Glucose 95 (75-100) mg/dL Calcium 9.5 (8.4-10.2) mg/dL Troponin T < 0.010 < 0.010 (0.00-0.029) ng/mL 01/26/20 Range/Units 07:47 WBC (4.5-11.0) K/mm3 RBC (3.65-5.03) M/mm3 Hgb (11.8-15.2) gm/dl Hct (35.5-45.6) % MCV (84-94) fl MCH (28-32) pg MCHC (32-34) % RDW (13.2-15.2) % Plt Count (140-440) K/mm3 Lymph % (Auto) (13.4-35.0) % [place] % (Auto) (0.0-7.3) % Eos % (Auto) (0.0-4.3) % Baso % (Auto) (0.0-1.8) % Lymph # (Auto) (1.2-5.4) K/mm3 [place] # (Auto) (0.0-0.8) K/mm3 Eos # (Auto) (0.0-0.4) K/mm3 Baso # (Auto) (0.0-0.1) K/mm3 Seg Neutrophils % (40.0-70.0) % Seg Neutrophils # (1.8-7.7) K/mm3 Sodium (137-145) mmol/L Potassium (3.6-5.0) mmol/L Chloride (98-107) mmol/L Carbon Dioxide (22-30) mmol/L Anion Gap mmol/L BUN (9-20) mg/dL Creatinine (0.8-1.3) mg/dL Estimated GFR ml/min BUN/Creatinine Ratio % Glucose (75-100) mg/dL Calcium (8.4-10.2) mg/dL Troponin T < 0.010 (0.00-0.029) ng/mL - EKG Data -: EKG Interpreted by Me EKG shows normal: sinus rhythm Rate: normal - EKG Data When compared to previous EKG there are: no significant change Interpretation: unchanged when compared t 01/26/20 09:32 EKG #2 shows a sinus rhythm, 65 bpm, normal axis, normal intervals, left ventricular hypertrophy, not a STEMI. It is unchanged from prior EKG from January 2020. It is also unchanged from EKG #1 earlier on today. Neither EKG is a STEMI. - Radiology Data Radiology results: report reviewed, image reviewed Print Report Referring Physician: GERARDO AN Patient Name: LORETTA KESSLER Date of : 1965 Sex: Male Report Date: 2020-01-26 Report Status: Finalized Findings [facility] [address] [place] [address] XRay Report Signed Patient: LORETTA KESSLER MR#: [id number] : 1965 Acct:[id number] Age/Sex: 54 / M ADM Date: 01/26/20 Loc: ED Attending Dr: Ordering Physician: GERARDO AN MD Date of Service: 01/26/20 Procedure(s): XR chest 1V ap Accession Number(s): [id number] cc: GERARDO AN MD Fluoro Time In Minutes: CHEST 1 VIEW INDICATION: Chest Pain. COMPARISON: 01/21/2020 FINDINGS: Support devices: None. Heart: Normal. Lungs/Pleura: No acute pulmonary or pleural findings. IMPRESSION: 1. No acute findings. Signer Name: Dax Noriega MD Signed: 01/26/2020 2:01 AM Workstation Name: [id number] Transcribed By: Dictated By: Dax Noriega MD Electronically Authenticated By: Dax Noriega MD Signed Date/Time: 01/26/20200 DD/ 9 TD/TT: - Medical Decision Making Differential diagnosis, including but not limited to: General medical exam, GERD, gastritis, hiatal hernia, pneumonia, panic attack, coronary artery disease Assessment and plan: 54-year-old gentleman, who is afebrile, with reassuring vital signs, not tachycardic, tachypneic or hypoxic, who denies DVT and pulmonary embolism risk factors, who is low risk by Wells criteria for pulmonary embolism, multiple negative troponins, EKG unchanged x2, very low risk for major adverse cardiac event as per heart score, low risk by NOA score, with resolved chest tightness and palpitations. Patient does not appear to have an emergent medical condition at this time. He is eating a meal without difficulty. Patient counseled on self calming techniques and meditation techniques. He is suitable to follow-up with his outpatient primary care doctor and/or crusher and binder operator. We discussed the need for proper sleep, and avoidance of stimulants, caffeine, energy drinks. Patient states he does not consume caffeine or any stimulants. He is clinically sober at this time, and does not meet criteria for 1013 at this time Critical care attestation.: If time is entered above; I have spent that time in minutes in the direct care of this critically ill patient, excluding procedure time. ED Disposition Clinical Impression: History of palpitations, History of chest pain Disposition: DC-01 TO HOME OR SELFCARE Is pt being admited?: No Does the pt Need Aspirin: No Condition: Stable Additional Instructions: Please make certain to continue current outpatient medications. Avoid consumption of caffeine, energy drinks, red bull, stimulants. Please follow-up with a primary care doctor or crusher and binder operator within the next week. Please make certain to get at least 7 hours of good quality uninterrupted sleep each day. Please return to the emergency room right away with new pain, worsened pain, migration of pain, projectile vomiting, change in mental status, confusion, inability to tolerate liquid feeds, new, worsened or different symptoms not present on the initial emergency room evaluation. Referrals: ABDI HUTCHISON MD [Staff Physician] - 7-10 days AUBURN TAMMY COTE MD [Primary Care Provider] - 7-10 days
[2020-01-26 09:53] VITALS: BP 110/78
== END 2020-01-26 09:55 | disposition home or self-care (01) ==
LOC: ED 00:23
DX: R07.89 Other chest pain (principal); R00.2 Palpitations; Z88.6 Allergy status to analgesic agent; Z88.0 Allergy status to penicillin
CPT/HCPCS: 36415; 71045; 80048; 84484; 85025; 93005

== ENCOUNTER 2020-10-07 18:39 | Emergency (ER) | payer MEDICARE ==
[2020-10-07 19:14] VITALS: BP 155/89
--- NOTE | 2020-10-07 21:08 | Emergency Department Report ---
ED ENT HPI - General Chief complaint: Dental/Oral Stated complaint: HEAD PAIN, DENTAL PAIN Time Seen by Provider: 10/07/20 20:59 Source: patient Mode of arrival: Ambulatory Limitations: No Limitations - History of Present Illness Initial comments: 55-year-old -[place] male presents to the emergency room complaining of left upper jaw tooth that is broken pain. Patient reports he took Aleve at 3:00 today after getting off the plane. Patient denies any swelling. Patient states that he does not have $69 at a cost to go to the dentist. Patient reports he has a past medical history of hypertension. Denies any trauma to his jaw MD complaint: tooth pain -: This afternoon Time: 14:00 Severity scale (0 -10): 8 Quality: aching, sharp Consistency: constant Improves with: none Worsens with: none Associated Symptoms: toothache. denies: gum swelling - Related Data Home Medications Medication Instructions Recorded Confirmed Last Taken Ondansetron [Zofran Odt] 4 mg PO Q8HR PRN 07/04/16 03/10/17 Unknown amLODIPine [Norvasc] 10 mg PO DAILY 07/04/16 03/10/17 Unknown Sertraline 50 mg PO HS 03/10/17 03/10/17 Unknown hydrOXYzine 25 mg PO TID 03/10/17 03/10/17 Unknown Previous Rx's Medication Instructions Recorded Last Taken Type hydrOXYzine HCL [Atarax] 25 mg PO Q6HR PRN #30 tablet 03/11/17 Unknown Rx Omeprazole 20 mg PO DAILY #30 tablet. 07/15/17 Unknown Rx Clindamycin [Clindamycin CAP] 300 mg PO Q8H 10 Days #30 cap 10/07/20 Unknown Rx Allergies Allergy/AdvReac Type Severity Reaction Status Date / Time ibuprofen AdvReac Unknown Verified 03/14/18 09:44 Penicillins AdvReac Unknown Verified 03/14/18 09:44 ED Dental HPI - General Chief complaint: Dental/Oral Stated complaint: HEAD PAIN, DENTAL PAIN Time Seen by Provider: 10/07/20 20:59 Source: patient Mode of arrival: Ambulatory Limitations: No Limitations - Related Data Home Medications Medication Instructions Recorded Confirmed Last Taken Ondansetron [Zofran Odt] 4 mg PO Q8HR PRN 07/04/16 03/10/17 Unknown amLODIPine [Norvasc] 10 mg PO DAILY 07/04/16 03/10/17 Unknown Sertraline 50 mg PO HS 03/10/17 03/10/17 Unknown hydrOXYzine 25 mg PO TID 03/10/17 03/10/17 Unknown Previous Rx's Medication Instructions Recorded Last Taken Type hydrOXYzine HCL [Atarax] 25 mg PO Q6HR PRN #30 tablet 03/11/17 Unknown Rx Omeprazole 20 mg PO DAILY #30 tablet. 07/15/17 Unknown Rx Clindamycin [Clindamycin CAP] 300 mg PO Q8H 10 Days #30 cap 10/07/20 Unknown Rx Allergies Allergy/AdvReac Type Severity Reaction Status Date / Time ibuprofen AdvReac Unknown Verified 03/14/18 09:44 Penicillins AdvReac Unknown Verified 03/14/18 09:44 ED Review of Systems ROS: Stated complaint: HEAD PAIN, DENTAL PAIN Other details as noted in HPI Comment: All other systems reviewed and negative ED Past Medical Hx - Past Medical History Hx Hypertension: Yes Hx Psychiatric Treatment: Yes (anxiety, depression) - Social History Smoking Status: Never Smoker - Medications Home Medications: Home Medications Medication Instructions Recorded Confirmed Last Taken Type Ondansetron [Zofran Odt] 4 mg PO Q8HR PRN 07/04/16 03/10/17 Unknown History amLODIPine [Norvasc] 10 mg PO DAILY 07/04/16 03/10/17 Unknown History Sertraline 50 mg PO HS 03/10/17 03/10/17 Unknown History hydrOXYzine 25 mg PO TID 03/10/17 03/10/17 Unknown History hydrOXYzine HCL [Atarax] 25 mg PO Q6HR PRN #30 tablet 03/11/17 Unknown Rx Omeprazole 20 mg PO DAILY #30 tablet. 07/15/17 Unknown Rx Clindamycin [Clindamycin CAP] 300 mg PO Q8H 10 Days #30 cap 10/07/20 Unknown Rx ED Physical Exam - General Limitations: No Limitations General appearance: alert, in no apparent distress - Head Head exam: Present: atraumatic, normocephalic - Eye Eye exam: Present: normal appearance - ENT ENT exam: Present: mucous membranes moist - Expanded ENT Exam Expanded Teeth exam: Present: dental caries, gingival enlargement - Neurological Exam Neurological exam: Present: alert, oriented X3, normal gait - Psychiatric Psychiatric exam: Present: normal affect, normal mood - Skin Skin exam: Present: warm, dry, intact, normal color. Absent: rash ED Course Vital Signs 10/07/20 19:13 Temperature 98.4 F Pulse Rate 61 Respiratory 16 Rate Blood Pressure 155/89 O2 Sat by Pulse 99 Oximetry ED Medical Decision Making - Medical Decision Making 55-year-old -[place] male presents to the emergency room complaining of left upper jaw tooth that is broken pain. Patient reports he took Aleve at 3:00 today after getting off the plane. Patient denies any swelling. Patient states that he does not have $69 at a cost to go to the dentist. Patient reports he has a past medical history of hypertension. Denies any trauma to his jaw Critical care attestation.: If time is entered above; I have spent that time in minutes in the direct care of this critically ill patient, excluding procedure time. ED Disposition Clinical Impression: Pain, dental, Dental infection Disposition: TO HOME OR SELFCARE Is pt being admited?: No Does the pt Need Aspirin: No Condition: Stable Instructions: Dental Abscess, [id number] Additional Instructions: Complete medication as prescribed. Follow up with a dentist Prescriptions: Clindamycin [Clindamycin CAP] 300 mg PO Q8H 10 Days #30 cap Referrals: [facility] [Outside] - 3-5 Days [facility] [Outside] - 3-5 Days Forms: Work/School Release Form(ED)
== END 2020-10-07 21:10 | disposition home or self-care (01) ==
LOC: ED 18:39
DX: K08.89 Other specified disorders of teeth and supporting structures (principal); K04.7 Periapical abscess without sinus; I10 Essential (primary) hypertension; F41.9 Anxiety disorder, unspecified; F32.9 Major depressive disorder, single episode, unspecified; Z79.899 Other long term (current) drug therapy; Z88.6 Allergy status to analgesic agent; Z88.0 Allergy status to penicillin
CPT/HCPCS: 99282